=== PATIENT | female | born 1955 | race African-American/Black ===

== ENCOUNTER → 2017-05-31 | Outpatient (CLI) | payer MEDICARE, MEDICAID ==
[~2017-05-31] VITALS: Ht 175.3 cm; Wt 61.0 kg
[~2017-05-31] MED LIST: DIPH-654 PO; HYDR-305 PO; LOPE2 PO; MULT1CAP32 PO; TRAZ-147 PO
[2017-05-31 09:43] VITALS: BP 134/72
== END | disposition home or self-care (01) ==
LOC: SRCNTR 09:28
PROVIDERS: ATTEND Hospitalist
DX: M16.11 Unilateral primary osteoarthritis, right hip (principal); M25.561 Pain in right knee
CPT/HCPCS: G0463

== ENCOUNTER → 2017-06-14 | Outpatient (CLI) | payer MEDICARE, MEDICAID ==
[~2017-06-14] MED LIST changes: -HYDR-305 PO
[2017-06-14 10:26] LABS: BASOPHILS % (AUTO) 0.6 % (0.0-2.0); HEMATOCRIT 45.1 % (36-46); HEMOGLOBIN 15.6 g/dL (12.0-16.0); LYMPHOCYTES # (AUTO) 2.2 K/uL (1.0-4.8); LYMPHOCYTES % (AUTO) 34.9 % (22.0-44.0); MEAN CORPUSCULAR HEMOGLOBIN 32.5 pg (26.0-34.0); MEAN CORPUSCULAR HGB CONC 34.5 G/dL (31.0-37.0); MEAN CORPUSCULAR VOLUME 94 fL (80-100); MONOCYTES # (AUTO) 0.4 K/uL (0.1-1.0); MONOCYTES % (AUTO) 6.9 % (2.0-9.0); NEUTROPHILS # (AUTO) 3.5 K/uL (1.8-7.7); NEUTROPHILS % (AUTO) 55.6 % (40.0-70.0); PLATELET COUNT (AUTO) 218 K/uL (150-450); RED BLOOD CELL COUNT(AUTO) 4.79 MIL/uL (4.00-5.20); RED CELL DISTRIBUTION WIDTH 13.7 % (11.5-14.5)
[2017-06-14 10:58] LABS: ANION GAP 5 mmol/L (8-16); CALCIUM, TOTAL 9.4 mg/dL (8.8-10.5); CARBON DIOXIDE 31 mmol/L (22-29); CHLORIDE 103 mmol/L (98-107); CHOL/HDL RATIO 2.1 (3.9-5.7); CHOLESTEROL 219 mg/dL (131-200); CREATININE 1.06 mg/dL (0.60-1.30); FREE T4 (FREE THYROXINE) 0.92 ng/dL (0.76-1.46); GLOMERULAR FILTR. RATE CALC > 60 mL/min (>60); GLUCOSE,RANDOM 96 mg/dL (70-110); HDL CHOLESTEROL 103 mg/dL (40-60); LDL CHOL (CALC.) 89 mg/dL (0-130); POTASSIUM 4.1 mmol/L (3.5-5.1); SODIUM SERUM 139 mmol/L (136-145); THYROID STIMULATING HORMONE 0.67 uIU/mL (0.36-3.74); TRIGLYCERIDES 137 mg/dL (15-150); UREA NITROGEN, BLOOD 8 mg/dL (7-18)
== END | disposition home or self-care (01) ==
LOC: LABPV 08:49
PROVIDERS: ATTEND Hospitalist
DX: Z00.00 Encounter for general adult medical examination without abnormal findings (principal); M17.11 Unilateral primary osteoarthritis, right knee; G89.29 Other chronic pain; R79.89 Other specified abnormal findings of blood chemistry; Z79.899 Other long term (current) drug therapy
CPT/HCPCS: 82271; 84439; 84443

== ENCOUNTER → 2017-12-27 | Outpatient (CLI) | payer MEDICARE, MEDICAID ==
[~2017-12-27] VITALS: Ht 175.3 cm; Wt 58.8 kg
[~2017-12-27] MED LIST changes: +ACYC200C PO; +BUPR-93 PO; +HYDR-4455 PO; -MULT1CAP32 PO; -TRAZ-147 PO; +TRAZ-220 PO
[2017-12-27 12:04] VITALS: BP 109/61
== END | disposition home or self-care (01) ==
LOC: SRCNTR 11:16
PROVIDERS: ATTEND Hospitalist
DX: M16.11 Unilateral primary osteoarthritis, right hip (principal); G47.00 Insomnia, unspecified; G89.4 Chronic pain syndrome
CPT/HCPCS: G0463

== ENCOUNTER 2021-12-08 11:19 | Emergency (ER) | payer MEDICARE, OTHER ==
[~2021-12-08] VITALS: Ht 175.3 cm; Wt 75.0 kg
[~2021-12-08 11:19] MED LIST changes: -ACYC200C PO; +ACYC200C24 PO; +BUPR-50 PO; -BUPR-93 PO; +LOPE-232 PO; -LOPE2 PO; -TRAZ-220 PO; +TRAZ-257 PO
[2021-12-08] MEDS ORDERED: htn med PO (11:32)
[2021-12-08] MEDS ORDERED: PERTUSS(ACELL),DIPH,TET VAC/PF 0.5 ML SYRINGE IM. ONE (12:30)
[2021-12-08] MEDS ORDERED: BACITRACIN 28 GM OINTMENT TP ONE (12:30)
[2021-12-08] MEDS ORDERED: ACETAMINOPHEN 325 MG TABLET PO ONE (12:30)
[2021-12-08] MEDS ORDERED: MUPI15CR12 TP (12:39)
[2021-12-08] MEDS ORDERED: METH-659 PO (12:39)
[2021-12-08] MEDS ORDERED: GABA-1181 PO (12:39)
[2021-12-08 13:30] VITALS: BP 136/95
== END 2021-12-08 13:32 | disposition home or self-care (01) ==
LOC: EMS 11:19
DX: S16.1XXA Strain of muscle, fascia and tendon at neck level, initial encounter (principal); S00.81XA Abrasion of other part of head, initial encounter; I10 Essential (primary) hypertension; M81.0 Age-related osteoporosis without current pathological fracture; Z98.890 Other specified postprocedural states; Z91.09 Other allergy status, other than to drugs and biological substances; Y08.89XA Assault by other specified means, initial encounter; Y93.89 Activity, other specified; Y92.89 Other specified places as the place of occurrence of the external cause; Y99.8 Other external cause status
CPT/HCPCS: 90471; 90715; 99283